=== PATIENT | male | born 1955 | race Caucasian/White ===

== ENCOUNTER 2021-02-05 00:20 | Day surgery (SDC) | payer MEDICARE, SELFPAY ==
[2021-01-21 13:49] VITALS: BMI 31.4
[2021-02-05 07:42] VITALS: BP 131/85; PULSE 55; RESP 18; TEMP 36.1; O2SAT 97; BMI 31.0
[2021-02-05] MEDS: LACTATED RINGERS 1,000 ML 150 ML IV CONT (07:49)
--- NOTE | 2021-02-05 08:39 | WPDANESEPPF ---
Anes - Initial Pre Proc Eval Procedure: Operation Date: 02/05/21 09:00 Proposed Procedures p Screening Colonoscopy - Bud Arteaga MD Date/Time: 02/05/21 08:39 Surgeon: Bud Arteaga MD Pre Op Diagnosis: family hx of colon ca, hx of colon polyps Patient Data Age: 65 Gender: M Height: 1.83 m Weight: 103.9 kg Last Vital Signs Temp 36.1 C L 02/05/21 07:42 Pulse 55 L 02/05/21 07:42 Resp 18 02/05/21 07:42 BP 131/85 02/05/21 07:42 Pulse Ox 97 02/05/21 07:42 Allergies Allergy/AdvReac Type Severity Reaction Status Date / Time No Known Allergies Allergy Unverified 02/05/21 07:41 Home Medications Medication Instructions Recorded Confirmed Type hydrochlorothiazide 25 mg PO DAILY 01/21/21 01/21/21 History latanoprost 1 drp OPHTHALMIC (EYE) DAILY 01/21/21 01/21/21 History timolol maleate 1 drp OPHTHALMIC (EYE) DAILY 01/21/21 01/21/21 History Patient hx anesthesia problems: none Family hx anesthesia problems: none PMFSH Past Medical History Medical History (Updated 02/05/21 @ 08:40 by Christo Deleon MD) History of renal stone HTN (hypertension) Overweight Surgical History Surgical History (Updated 02/05/21 @ 08:40 by Christo Deleon MD) H/O arthroscopic knee surgery Social History Social History Smoking packs per day: 1 Smoking cigarettes per day: 20.0 Years smoked: 20 Smoking pack-years: 20.00 Smoking status: Former smoker Tobacco type: cigarettes Alcohol intake: current Drinks per week: 3 Living arrangements: with family Gender identity (if verbalized by the patient): Male Spiritual care concerns: No Anes - Eval Final PreProcedure Day of Procedure 02/05/21 08:39 Patient weight: overweight Heart: regular rate and rhythm Lungs: clear to auscultation Airway: Mallampati scale class II Neurological: alert and oriented Last oral intake: >/= 8 hours ASA classification: II Emergent: no Anesthetic plan: proceed Anesthesia type and monitoring: general GIVS and standard monitoring Informed Consent: The patient's anesthetic plan and its attendant risks and benefits were discussed with the patient/family/POA. Questions were solicited and answers provided to the satisfaction of the patient/family/POA.
--- NOTE | 2021-02-05 08:47 | PM.HPGS ---
History of Present Illness History of Present Illness Consent: Risks, benefits, and alternatives have been discussed and questions answered. Patient agrees to proceed with procedure. Chief complaint: family hx of colon ca, hx of colon polyps Narrative: Raghav Kirk is a 65 year old male with a family history of colon cancer. He himself has had polyps in the past Review of Systems Review of Systems: All systems reviewed & are unremarkable except as noted in HPI and below PMFSH Past Medical History Medical History History of renal stone HTN (hypertension) Overweight Surgical History Surgical History H/O arthroscopic knee surgery Social History Social History Smoking packs per day: 1 Smoking cigarettes per day: 20.0 Years smoked: 20 Smoking pack-years: 20.00 Smoking status: Former smoker Tobacco type: cigarettes Alcohol intake: current Drinks per week: 3 Living arrangements: with family Gender identity (if verbalized by the patient): Male Spiritual care concerns: No Meds Home Medications and Allergies Home Medications Medication Instructions Recorded Confirmed Type hydrochlorothiazide 25 mg PO DAILY 01/21/21 01/21/21 History latanoprost 1 drp OPHTHALMIC (EYE) DAILY 01/21/21 01/21/21 History timolol maleate 1 drp OPHTHALMIC (EYE) DAILY 01/21/21 01/21/21 History Allergies Allergy/AdvReac Type Severity Reaction Status Date / Time No Known Allergies Allergy Unverified 02/05/21 07:41 Vital Signs Vital Signs - 24 hr 02/05/21 07:42 Temperature 36.1 C L Pulse Rate 55 L Respiratory Rate 18 Blood Pressure 131/85 Pulse Oximetry 97 Exam Resp: Auscultation: clear to auscultation bilaterally Cardio: Rate: regular rate Rhythm: regular rhythm GI: GI Palp: Yes Soft to palpation and No Tenderness to palpation present (GI) Assessment and Plan Assessment and plan (1) Colon cancer screening: Code(s): Z12.11 - Encounter for screening for malignant neoplasm of colon Status: Acute Assessment and Plan: Colonoscopy with possible biopsy or polypectomy or cautery or injection of substances.
[2021-02-05 09:09] VITALS: BP 95/56; PULSE 50; RESP 17; O2SAT 95
[2021-02-05 09:19] VITALS: BP 101/63; PULSE 56; RESP 16; O2SAT 95
[2021-02-05 09:29] VITALS: BP 117/69; PULSE 51; RESP 19; O2SAT 97
== END 2021-02-05 09:45 | disposition home or self-care (01) ==
PROVIDERS: PCP Internal Medicine; Visit Provider Internal Medicine Gastroenterology
PROC: 0DJD8ZZ Inspection of Lower Intestinal Tract, Via Natural or Artificial Opening Endoscopic (ICD-10-PCS; CPT 45378; principal; 2021-02-05 09:00)
DX: Z12.11 Encounter for screening for malignant neoplasm of colon (principal); Z86.010 Personal history of colon polyps; Z80.0 Family history of malignant neoplasm of digestive organs; I10 Essential (primary) hypertension; Z87.891 Personal history of nicotine dependence
CPT/HCPCS: G0105; J2704; J7120

== ENCOUNTER 2022-11-07 15:32 | Emergency (ER) | payer MEDICARE, SELFPAY ==
--- NOTE | 2022-11-07 15:33 | ED.EXTPRO ---
HPI - Extremity Problem General Chief complaint: Extremity Problem,Nontraumatic Stated complaint: Lower Rt Leg Swelling Time Seen by Provider: 11/07/22 15:41 Source: patient, RN notes reviewed and old records reviewed Mode of arrival: ambulatory Limitations: no limitations History of Present Illness HPI Narrative: 67-year-old male presents to the [facility] with complaints of right lower leg swelling, redness, increased warmth since , 3 days Has taken Tylenol and Motrin. Walks with a normal gait. Negative Homans sign. No pain or tenderness posterior calf. Onset (ago): day(s) (3) Related Data Home Medications Medication Instructions Recorded Confirmed hydrochlorothiazide 25 mg tablet 25 mg PO DAILY 01/21/21 11/07/22 latanoprost 0.005 % eye drops 1 drp ophthalmic (eye) DAILY 01/21/21 11/07/22 timolol maleate 0.5 % eye drops 1 drp ophthalmic (eye) DAILY 01/21/21 11/07/22 Allergies Allergy/AdvReac Type Severity Reaction Status Date / Time No Known Allergies Allergy Verified 11/07/22 15:34 Review of Systems Review of Systems: All systems reviewed & are unremarkable except as noted in HPI and below Constitutional: Constitutional: Reports no additional constitutional complaints Eyes: Eyes: Reports no additional eye complaints ENT: Reports system reviewed and no additional complaints, except as documented Cardiovascular: Cardiovascular: Reports no additional cardiovascular complaints, Denies chest pain and Denies dyspnea Respiratory: Respiratory: Reports no additional respiratory complaints, Denies chest congestion, Denies cough and Denies dyspnea Gastrointestinal: Gastrointestinal: Reports no additional gastrointestinal complaints, Denies abdominal pain, Denies nausea and Denies vomiting Musculoskeletal: Musculoskeletal: Reports as per HPI Integumentary/Breasts: Skin/Breast: Reports as per HPI Neurologic: Reports system reviewed and no additional complaints, except as documented Psychiatric: Psychiatric: Reports no additional psychiatric complaints Allergic/Immunologic: Allergic/Immunologic: Reports no additional allergic/immunologic complaints PMFSH Past Medical History Medical History History of renal stone HTN (hypertension) Overweight Surgical History Surgical History H/O arthroscopic knee surgery Social History Social History Smoking packs per day: 1 Smoking cigarettes per day: 20.0 Years smoked: 20 Smoking pack-years: 20.00 Smoking status: Former smoker Tobacco type: cigarettes Alcohol intake: current Drinks per week: 3 Living arrangements: with family Gender identity (if verbalized by the patient): Male Spiritual care concerns: No Comments At the time of my signature, I reviewed and agree with the nursing past medical, surgical, social, and family history. There is no relevant family history pertinent to the patient complaint. Exam Const: General: cooperative, healthy appearing, comfortable, no acute distress, well developed, alert and well nourished Nutritional Appearance: well nourished and obese Orientation/consciousness: patient oriented x3 Limitations: no limitations HENMT: Head: normal to inspection Ears: hearing grossly normal bilaterally and external ears normal Face/Nose/Sinus: Normal external nose present, Normal nares present, Normal nasal mucous membranes and turbinates present and normal facial exam Face and sinus: normal facial exam Mouth: Yes Normal oral and palatal mucosa present, Yes lip normal and Yes moist mucous membranes Eyes: General: appearance normal, both eyes and all related structures Alignment and Position: alignment normal Periorbital: periorbital findings normal Conjunctivae: conjunctivae normal Pupils: Equal, round and reactive pupils present EOM: EOMs intact
[2022-11-07 15:40] VITALS: BP 129/76; PULSE 64; RESP 16; TEMP 37.2; O2SAT 100
== END 2022-11-07 16:00 | disposition home or self-care (01) ==
PROVIDERS: Emergency Provider Nurse Practitioner; PCP Internal Medicine
DX: L03.115 Cellulitis of right lower limb (principal); I10 Essential (primary) hypertension; Z87.891 Personal history of nicotine dependence
CPT/HCPCS: 99213; G0463

== ENCOUNTER 2025-03-08 12:44 | Outpatient (CLI) | payer MEDICARE, SELFPAY ==
--- OUTSIDE RECORDS SUMMARY | 2025-03-08 13:08 | XMS_ITS | Encounter Summary ---
Author Organization [facility] Address [address] [place] [address] Care Team Providers Care Chief Media Officer Name Role Phone Liu Olivas MD Primary Care Provider [phone] Reason for Visit * Reason Onset Date Comments PT Follow Up 01/27/2024 Wanted to know i f he can get his PT extended Encounter Details Date Type Department Care Team (Late st Contact Info) Description 01/27/2024 Telephone [facility] Orthopedic Surgery at the [facility] [address] [place] [address] Kai Moya MD [address] [facility] [address] [place] [address] PT Follow Up (Wanted to know if he can get his PT extended ) Social History Tobacco Use Types Packs/Day Years Used Date Smoking Tobacco: Former Cigarettes 1 24.6 2 001 - 1973 Smokeless Tobacco: Former Chew Quit: 2000 Alcohol Use Standard Drinks/Week Comments Yes 7 (1 standard drink = 0.6 oz pur e alcohol) Sex and Gender Information Value Date Recorded Sex Assigned at Not on file 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
--- OUTSIDE RECORDS SUMMARY | 2025-03-08 13:08 | XMS_ITS | Clinical Summary ---
Author Organization [facility] Address [address] [place] [address] Care Team Providers Care Bun Panner Name Role Phone Liu Olivas MD Primary Care Provider [phone] Allergies No known active allergies Medications timolol (TIMOPTIC) 0.5 % ophthalmic solutionIndicat ions:open angle glaucoma Administer 1 drop into both eyes every morning 8 Active latanoprost (XALATAN) 0.005 % ophthalmic solutionIndicat ions:open angle glaucoma Administer 1 drop into both eyes nightly 8 Active psyllium seed, with sugar, (FIBER ORAL)Indication s:constipation Take 1 tablet/chew tab by mouth every morning Active aluminum hydroxide - magnesium carbonate (GAVISCON) suspension 95 MG-358 mg/15 mL Take 15 mL by mouth nightly Active ketoconazole (NIZORAL) 2 % shampooIndicati ons:tinea versicolor Apply topically 3 (three) times a week Apply to damp skin, lather, leave on 5 minutes, and rinse Active olmesartan (BENICAR) 20 mg tablet Take 1 tablet (20 mg total) by mouth daily 30 tablet 11 4 07/06/20 25 Active methylPREDNISol one (MEDROL DOSEPACK) 4 mg Dosepack Take 1 tablet (4 mg total) by mouth daily Use as directed by package instructions 21 tablet 5 Active hydroCHLOROthia zide (HYDRODIURIL) 25 mg tablet Take 1 Tablet (25 mg) by mouth daily in the morning. 90 tablet 2 Active Active Problems Problem Noted Date Diagnosed Date Impacted cerumen, bilateral 01/18/2025 Thrombocytopenia 11/08/2022 Assessment & Plan (11/08/2022 3:53 AM CDT): -mild, platelet count 127K/cumm -repeat CBC in AM; hold heparinoids if platelets <50K -no indication for transfusion SDPs at this time -outpatient f/u with PMD for serial CBCs; can consider further w/u or hematology referral at that time Cellulitis of right leg 11/07/2022 Assessment & Plan (11/08/2022 3:47 AM CDT): -mild, uncomplicated; no S/Sx abscess or sepsis -afebrile, HD stable, normal WBC count -he receive 1g IV cefazolin in the ED, a few hours after he took the first dose of cefuroxime 500 mg PO as an outpatient -will hold further ABx administration for now -repeat BMP, Mg, Phos, CBC in AM -check blood Cx if spikes fever -elevate leg overnight and re-evaluate in AM; if he is afebrile, hemodynamically stable and without worrisome findings on exam in AM, he can likely be discharged on the antibiotic regimen he was rx'd at the urgent care Cellulitis 11/07/2022 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 ENT [address] [place] [address] [place] [address] Edita Hodges PA Impacted cerumen, bilateral (Primary Dx) from Last 3 Months Immunizations Immunization Administration Dates Next Due COVID-19 mRNA (Kera) 0.3 m L (30 mcg) vaccine (12 years and up) 04/29/2023 Influenza, Quad, Adjuvantate d, Intramuscular 04/29/2023,05/08/2022,06/05/2021 Influenza, Quadrivalent, Spl it, Preservative Free, Intramuscular 05/07/2020 Influenza, Trivalent, Adjuva nted, Intramuscular 05/07/2024 Influenza, Trivalent, High D ose, Split, Preservative Free, Intramuscular 03/30/2019,04/30/2015,04/25/2014 Influenza, Trivalent, Preser vative Free, Intramuscular 05/02/2013 Pneumococcal Conjugate PCV 13 10/16/2019 Pneumococcal Polysaccharide PPV23 05/07/2020 RSV Vaccine, Pref, Recombina nt, Subunit, Adjuvanted, PF, IM (Arexvy) 05/20/2023 Td, adsorbed 05/02/2013 ZOSTER Recombinant 03/30/2019,01/18/2019 Surgical History Surgery Date Site/Laterality Comments KIDNEY STONE SURGERY 08/01/2006 - 07/31/2007 FLUORO GUIDED INJECTION SHOULDER RIGHT 04/08/2020 Right BASAL CELL CARCINOMA EXCISION 08/01/2019 - 07/31/2020 Left Eyebrow CATARACT EXTRACTION W/ INTRAOCULAR LENS IMPLANT 08/01/2018 - 07/31/2019 Bilateral COLONOSCOPY Multiple-- Last ~12/2020 KNEE ARTHROSCOPY 08/01/2010 - 07/31/2011 Right Meniscectomy - Kaye OTHER SURGICAL HISTORY 07/01/2021 - 07/31/2021 Laser KTP, microlaryngoscopy OTHER SURGICAL HISTORY 09/25/2021 Laser KTP, microlaryngoscopy LARYNGOSCOPY 03/29/2022 flex laryngoscopy with KTP laser LARYNGOSCOPY 11/30/2021 Suspension Microlaryngoscopy Medical History Medical History Date Comments Gastric reflux Arthritis Pneumonia Obesity History of kidney stones Multipl e-- Last ~2014 passed without surgical interveion; s/p surgical removal 2006 Former smoker Quit 2000 Hypertension Dxd 2019 History of basal cell carcinoma (BCC) BCC Left eyebrow s/p excision 2019 GERD (gastroesophageal reflux disease) Chronic kidney disease 2000? PONV (postoperative nausea and vomiting) Family History Medical History Relation Name Comments Cancer Father Tim Hypertension Father Tim Arthritis Mother Carlene Diabetes Mother Carlene Heart disease Mother Carlene Hypertension Mother Carlene Anesthesia problems Neg Hx Relation Name Status Comments Father Tim Mother Carlene Social History Tobacco Use Types Packs/Day Years Used Date Smoking Tobacco: Former Cigarettes 1 25.7 0 11/13/1974 - 2000 Passive Smoke Exposure: Past Smokeless Tobacco: Former Chew Quit: 11/13/1989 Tobacco Cessation:Counseling Given: Not Answered Alcohol Use Standard Drinks/Week Comments Yes 0 (1 standard drink = 0.6 oz pur e alcohol) SOCIAL AUDIT-C Answer Date Recorded Q1: How often do you have a drink containing alc ohol? 2-3 times a week 06/06/2023 Q2: How many drinks containi ng alcohol do you have on a typical day when you are drinking? 1 or 2 06/06/2023 Q3: How often do you have si x or more drinks on one occasion? Never 06/06/2023 Personal Safety Answer Date Recorded Have you ever been in or are you currently in a harmful physical or emotional relationship or is someone making you feel afraid or unsafe? 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 Gender Identity Not on file Sexual Orientation Not on file Obstetrics History Last Filed Vital Signs Vital Sign Reading Time Taken Comments Blood Pressure 130/80 11/07/2024 11:17 AM CDT Pulse 69 11/07/2024 11:17 AM CDT Temperature 36.1 C (97 F) 06/06/2023 12:20 PM CONFERENCE SERVICE COORDINATOR Respiratory Rate 22 06/06/2023 12:20 PM CONFERENCE SERVICE COORDINATOR Oxygen Saturation 96% 06/06/2023 12:20 PM CONFERENCE SERVICE COORDINATOR Inhaled Oxygen Concentration - - Weight 108 kg (238 lb) 01/18/2025 11:16 AM CDT Height 182.9 cm (6') 11/29/2024 12:12 PM CDT Body Mass Index 32.28 11/29/2024 12:12 PM CDT Plan of Treatment Scheduled Procedures Name Priority Associated Diagnoses Date/Ti me COLONOSCOPY Encounter for screening colonoscopy Health Maintenance Due Date Last Done Comments Depression Screening 1955 Hepatitis C Screening 1955 Hepatitis B Screening 1971 DTaP/Tdap/Td Vaccine (1 - Tdap) 05/03/2013 3 Well Visit 65+ 11/18/2022 11/18/2021 Fall Risk Assessment 06/06/2024 06/06/2023 Covid-19 Vaccine (8 - 2023-2 5 season) 2024 05/07/2024, 04/29/2023, 06/26/2022, Additional history exists Influenza Vaccine (#1) 2025 , 04/29/2023, 05/08/2022, Additional history exists Colon Cancer Screening-Colonoscopy 02/18/2026 Abdominal Aortic Aneurysm (A AA) Screen Completed 10/10/2018, 02/19/2016 Zoster Vaccine Completed 03/30/2019, 01/18/2019 Pneumococcal vaccine 65+ Completed 05/07/2020, 09/29 Prostate Cancer Screening-PSA Discontinued , 11/18/2022, 11/18/2021, Additional history exists Medical Devices Implanted Type Area Operating Room Coordinator Device Identifier Shelf Expiration Date Model / Serial / Lot Dental Implant Upper Right Mouth Procedures Procedure Name Priority Date/Time Associated Diagnosis Comments PSA SCREEN Routine 11/07/2024 12:31 PM CDT Screening for prostate cancer from Last 3 Months or Most Recently Relevant to Health Maintenance Results * PSA screen (11/07/2024 12:31 PM CDT) PSA-Total 2.34 <=6.20 ng/mL Comment: Interpretive Data AGE SEX REFERENCE INTERVAL 0 minutes-150 years Female None 0 minutes-49 years Male None 50-59 years Male 0-3.90 60-69 years Male 0-5.40 70-79 years Male 0-6.20 80-150 years Male 0-6.20 The Chance PSA Total assay procedure was used. Results from different manufacturers or methods may not be comparable. Serial testing should be performed using the same method. Current interpretive data last revised 21. Blood 11/07/2024 12:3 1 PM CDT 11/07/2024 1:41 PM CDT us Liu Olivas MD LAB BLOOD ORDERABLES Final Re sult [facility] Department [place] [address] from Last 3 Months or Most Recently Relevant to Health Maintenance Insurance [facility] MEDICARE AppMyDay OPEN ACCESS [facility] MEDICARE ADVANTAGE [facility] MEDIC[facility] Address: [address] [place] [address] [employer] MEDICARE Advance Directives For more information, please contact: [phone] Documents on File Type Date Recorded Patient Plate Mounter Expl anation ADVANCE DIRECTIVE 07/03/2021 2:00 PM Power of Harness Cutter-Medical * Full Code (Latest Code Status on File) Date Activated Date Inactivated Comments 11/08/2022 3:23 AM 11/08/2022 5:22 PM Care Teams Bun Panner Relationship Specialty Start Date End Date Liu Olivas MD PCP - General Internal Medicine 03/27/18
--- OUTSIDE RECORDS SUMMARY | 2025-03-08 13:08 | XMS_ITS | Clinical Summary ---
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 This disclosure is being madepursuant to the Care Everywhere program and may not contain all information available regarding this patient. Last updated 18.[facility] Allergies No known active allergies Medications * Be aware that medications may not be up to date on this document. Alwaysverify current medications with the patient. Hardwick-3 Fatty Acids (FISH OIL CONCENTRATE PO) Take by mouth. Active latanoprost (XALATAN) 0.005 % ophthalmic solution 01/05/2017 Active timolol maleate (TIMOPTIC) 0.5 % ophthalmic solution 01/05/2017 Active hydroCHLOROthiaz tj (HYDRODIURIL) 25 MG tabletIndication s:Nephrolithiasi s,Hypertension, unspecified type TAKE 1 TABLET BY MOUTH ONCE DAILY 90 tablet 4 10/07/2021 Active Family History Medical History Relation Name Comments Cancer Father Hypertension Mother Relation Name Status Comments Father Mother Social History Tobacco Use Types Packs/Day Years Used Date Smoking Tobacco: Former Smokeless Tobacco: Never Comments:quit 1991 Alcohol Use Standard Drinks/Week Comments Yes 0 (1 standard drink = 0.6 oz pur e alcohol) ocasionally Sex and Gender Information Value Date Recorded Sex Assigned at Not on file 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 Gender Identity Not on file Sexual Orientation Not on file Last Filed Vital Signs Vital Sign Reading Time Taken Comments Blood Pressure 126/79 10/10/2018 11:38 AM CDT Pulse 54 10/10/2018 11:38 AM CDT Temperature 37 C (98.6 F) 10/10/2018 11:38 AM CDT Respiratory Rate 16 02/18/2016 7:05 AM CDT Oxygen Saturation 100% 10/10/2018 11:38 AM CDT Inhaled Oxygen Concentration - - Weight 104.3 kg (230 lb) 10/10/2018 11:38 AM CDT Height 182.9 cm (6') 10/10/2018 11:38 AM CDT Body Mass Index 31.19 10/10/2018 11:38 AM CDT Plan of Treatment Health Maintenance Due Date Last Done Comments COLOGUARD (AGES 45-75) - COL ON CA SCREENING 1953 CT COLONOGRAPHY - COLON CA SCREENING 1955 FIT - COLON CA SCREENING 1955 FLEX SIG - COLON CA SCREENING 1953 LIPID TESTING 1953 HEPATITIS C SCREENING 08/02/1971 DTAP/TDAP/TD VACCINES (1 - Tdap) 1972 PNEUMOCOCCAL VACCINE 50+ (1 of 1 - PCV) 2003 ZOSTER VACCINE (1 of 2) 2003 AAA SCREENING 2018 SCREENING FOR DIABETES 02/17/2019 02/18/2016 COLON MONITORING 10/25/2021 10/26/2011 COLONOSCOPY - COLON CA SCREENING 10/25/2021 10/26/19 Colorectal Cancer Screening 10/25/2021 COVID-19 VACCINE (1 - 2023-2 5 season) 2024 DEPRESSION SCREENING 08/01/2024 INFLUENZA VACCINE (#1) 2025 Respiratory Syncytial Virus (RSV) Vaccine Pt: or over 60 yrs (1 - 1-dose 75+ series) 2028 HEPATITIS B VACCINE Aged Out No longe r eligible based on patient's age to complete this topic HIB VACCINE Aged Out No longer eligi ble based on patient's age to complete this topic HPV VACCINE Aged Out No longer eligi ble based on patient's age to complete this topic MENINGOCOCCAL (Group B) VACC INE SHARED DECISION-MAKING Aged Out No longer eligibl e based on patient's age to complete this topic MENINGOCOCCAL GROUPS A/C/Y/W VACCINE Aged Out No longer eligible b ased on patient's age to complete this topic Procedures Procedure Name Priority Date/Time Associated Diagnosis Comments COMPREHENSIVE METABOLIC PANEL STAT 02/18/2016 7:32 AM CDT ENDOSCOPY, COLON, SCREENING Routine 10/26/2011 10:20 AM CDT from Last 3 Months or Most Recently Relevant to Health Maintenance Results * (ABNORMAL) COMPREHENSIVE METABOLIC PANEL (02/18/2016 7:32 AM CDT) BUN 19 7 - 26 mg/dL [facility] Creatinine 1.3(H) 0.6 - 1.2 mg/dL [facility] Sodium 139 136 - 145 mmol/L [facility] Potassium 4.1 3.5 - 4.5 mmol/L [facility] Chloride 105 98 - 107 mmol/L [facility] CO2 22 22 - 29 mmol/L [facility] Glucose 109 70 - 115 mg/dL [facility] Calcium 9.1 8.4 - 10.2 mg/dL [facility] Protein Total 6.8 6.0 - 8.3 g/dL [facility] Albumin 4.0 3.4 - 5.0 g/dL [facility] Bilirubin Total 1.8(H) 0.2 - 1.2 mg/dL [facility] Alkaline Phosphatase 56 40 - 150 Units/L [facility] ALT 12 0 - 55 Units/L [facility] AST 16 5 - 34 Units/L [facility] Anion Gap 16 8 - 18 [facility] BUN/Creatinine Ratio 15 7 - 23 [facility] Osmolality Calculated 291 270 - 300 mOsm/kg [facility] Albumin/Globulin Ratio 1.4 1.1 - 2.3 [facility] eGFR 56(L) >60 mL/min/1.7 3 m2 [facility] Blood specimen (specimen) BLOOD SPECIMEN / Unknown 02/18/2016 7:32 AM CDT 02/18/2016 7:35 AM CDT John Silvestre MD LAB - CHEMISTRY ORDERABLES F inal Result Performing Organization Address City/[facility]/ZIP Co de Phone Number [address] [phone] * ENDOSCOPY, COLON, SCREENING (10/26/2011 10:20 AM CDT) Narrative Transcriptions Neal Vences MD - 10/26/2011 10:19 AM CDT Neal Vences MD GI PROCEDURE ORDERABLES F inal Result Performing Organization Address [facility] Co de Phone Number [facility] ENDOSCOPY from Last 3 Months or Most Recently Relevant to Health Maintenance Insurance MEDICARE MEDICARE 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
--- OUTSIDE RECORDS SUMMARY | 2025-03-08 13:08 | XMS_ITS | Clinical Summary ---
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 Active FIBER ORAL Take by mouth. Acti ve OTHER Litholyte Water Enhancer Supplement Powder Active timoloL maleate (TIMOPTIC) 0.5% solution INSTILL ONE DROP INTO BOTH EYES EVERY MORNING 5 mL 4 07/09/2024 9:25 AM SPRAY CREW 4 Active latanoprost (XALATAN) 0.005 % solution INSTILL 1 DROP INTO BOTH EYE(S) AT BEDTIME 9 mL 4 12/03/2024 11:55 AM CDT 4 Active ketoconazole (NIZORAL) 2 % Shampoo Use small amount as body wash every other day. 120 mL 5 01/17/2024 11:49 AM CDT 4 Active Food Supplement, Lactose-Free (Ensure Compact) Liquid Take by mouth. Activ e aspirin (ECOTRIN EC) 325 mg Tablet, Delayed Release (E.C.) Take 1 Tablet (325 mg) by mouth daily with breakfast. 30 Tablet 02/24/2024 10:10 AM CDT 4 Active ondansetron (ZOFRAN ODT) 4 mg Tablet, Rapid Dissolve Dissolve 1 Tablet (4 mg) on top of tongue, then swallow with saliva every 6 hours as needed for Nausea/Vomiting . 10 Tablet 02/24/2024 10:10 AM CDT 4 Active penicillin V potassium (VEETID) 500 mg tablet Take 1 Tablet (500 mg) by mouth every 6 hours until gone 28 Tablet 04/12/2024 9:31 AM CDT 4 Active amoxicillin (AMOXIL) 500 mg capsuleIndicatio ns:Status post total knee replacement using cement, right Take 4 capsules by mouth one hour prior to dental appointment. 4 Capsule 6 04/12/2024 11:58 AM CDT 4 Active amoxicillin (AMOXIL) 500 mg capsule Take 4 Capsules (2,000 mg) by mouth 1 hour prior to appointment. 20 Capsule 05/21/2024 3:46 PM CDT 4 Active olmesartan (BENICAR) 20 mg tablet Take 1 tablet (20 mg total) by mouth daily 30 Tablet 11 01/09/2025 11:13 AM CDT 4 Active ketoconazole (NIZORAL) 2 % Shampoo Use small amount as body wash 2-3 times weekly. 120 mL 5 07/18/2024 2:38 PM SPRAY CREW 4 Active timoloL maleate (TIMOPTIC) 0.5% solution INSTILL ONE DROP INTO BOTH EYES EVERY MORNING 5 mL 6 12/03/2024 11:55 AM CDT 5 Active methylPREDNISolo ne (MEDROL DOSPACK) 4 mg Tablets, Dose Pack TAKE DIRECTED ON PACKAGE. 21 Tablet 11/29/2024 2:28 PM CDT 5 Active hydroCHLOROthiaz tj 25 mg tablet Take 1 Tablet (25 mg) by mouth daily in the morning. 90 Tablet 2 01/09/2025 11:13 AM CDT 5 Active ketoconazole (NIZORAL) 2 % Shampoo Apply to affected areas on trunk 2-3 times weekly in the shower as needed. 120 mL 5 01/29/2025 4:07 PM CDT 5 Active Active Problems Problem Noted Date Diagnosed Date Primary osteoarthritis of right knee 02/24/2024 S/P total knee arthroplasty, right 02/24/2024 HTN (hypertension), benign 02/24/2024 Acute blood loss as cause of postoperative anemi a 11/04/2023 Primary osteoarthritis of left knee 11/04/2023 Hypertension 11/03/2023 Overview (11/03/2023): Dxd 2019 Last Assessment & Plan: -resume home regimen HCTZ in AM S/P total knee arthroplasty, left 11/03/2023 Encounters Date Type Department Care Team Description 01/24/2025 11:05 AM CDT Ancillary Procedure [facility] [address] [place] [address] Kai Moya MD Status post total knee replacement using cement, right; Status post total knee replacement using cement, left 01/24/2025 11:00 AM CDT Office Visit [facility] [address] [place] [address] Kai Moya MD Status post total knee replacement using cement, right (Primary Dx); Status post total knee replacement using cement, left 12/24/2024 External Device Data Initial Department [address] [place] [address] Dr VELEZ: [place] [address] Juan Olmos Md 12/20/2024 External Device Data [facility] ABSTRACTION Provider, Abstract 12/19/2024 External Device Data [facility] ABSTRACTION Provider, Abstract 12/18/2024 External Device Data [facility] ABSTRACTION Provider, Abstract from Last 3 Months Social History Tobacco Use Types Packs/Day Years Used Date Smoking Tobacco: Former Cigarettes 1 24.6 2 001 - 1974 Smokeless Tobacco: Former Chew Quit: 2000 Tobacco Cessation:Counseling Given: Not Answered Alcohol Use Standard Drinks/Week Comments Yes 7 (1 standard drink = 0.6 oz pur e alcohol) Sex and Gender Information Value Date Recorded Sex Assigned at Not on file 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 Gender Identity Not on file Sexual Orientation Not on file Last Filed Vital Signs Vital Sign Reading Time Taken Comments Blood Pressure 127/71 02/24/2024 4:02 AM CDT Pulse 76 02/24/2024 4:02 AM CDT Temperature 36.6 C (97.9 F) 02/24/2024 4:02 AM CDT Respiratory Rate 16 02/24/2024 4:02 AM CDT Oxygen Saturation 95% 02/24/2024 4:02 AM CDT Inhaled Oxygen Concentration - - Weight 108 kg (238 lb) 01/24/2025 10:59 AM CDT Height 182.9 cm (6') 01/24/2025 10:59 AM CDT Body Mass Index 32.28 01/24/2025 10:59 AM CDT Plan of Treatment Health Maintenance Due Date Last Done Comments DTAP/TDAP/TD VACCINES (1 - Tdap) 1972 FIT-DNA Q 3 years 1998 FIT/FOBT Q 1 year 1998 Flex Sig/CT Colonography Q 5 years 1998 COLORECTAL SCREENING 10/25/2021 10/26/2011 Colorectal Cancer Screening 10/25/2021 COVID-19 Vaccine (2023-2 5 season) 2024 04/29/2023 INFLUENZA VACCINE (#1) 2025 , 04/29/2023, 05/08/2022, Additional history exists RSV VACCINE (60+ or ) (1 - 1-dose 75+ series) 2028 Abdominal Aortic Aneurysm (A AA) Screening Completed 10/10/2018, 02/19/2016 ZOSTER VACCINE Completed 03/30/2019, 01/18/2019 PNEUMOCOCCAL VACCINE 50+ YEARS Completed 05/07/2020 , 10/16/2019 Medical Devices Implanted Type Area Corrugated Sheet Material Sheeter Device Identifier Shelf Expiration Date Model / Serial / Lot Cement R Refobacin 1x40gm [id number] - [id number] Implanted:Qty: 2 on 11/03/2023 by Kai Moya MD at [facility] Cement Left: Knee [employer] [id number] 02/28/2026 [id number] / / [id number] Cement R Refobacin 1x40gm [id number] - [id number] Implanted:Qty: 1 on 02/23/2024 by Kai Moya MD at [facility] Cement Right: Knee [employer] [id number] 03/31/2026 [id number] / / [id number] Cement R Refobacin 1x40gm [id number] - [id number] Implanted:Qty: 1 on 02/23/2024 by Kai Moya MD at [facility] Cement Right: Knee [employer] [id number] 11/28/2025 [id number] / / [id number] Comp Tib Cocr Finned 83mm [id number] - [id number] Implanted:Qty: 1 on 11/03/2023 by Kai Moya MD at [facility] Knee Left: Knee [employer] 08/12/2033 [id number] / / [id number] Comp Fem Vanguard Cr Interlock Lt 70mm [id number] - [id number] Implanted:Qty: 1 on 11/03/2023 by Kai Moya MD at [facility] Knee Left: Knee [employer] 05/31/2033 [id number] / / [id number] Bearing Tib Vanguard Ant Stblzd [id number] - [id number] Implanted:Qty: 1 on 11/03/2023 by Kai Moya MD at [facility] Knee Left: Knee [employer] [id number] 12/09/2026 [id number] / / [id number] Comp Fem Vanguard Cr Interlock Rt 70mm [id number] - [id number] Implanted:Qty: 1 on 02/23/2024 by Kai Moya MD at [facility] Knee Right: Knee [employer] 10/11/2033 [id number] / / [id number] Comp Tib Cocr Finned 87mm [id number] - [id number] Implanted:Qty: 1 on 02/23/2024 by Kai Moya MD at [facility] Knee Right: Knee [employer] 12/11/2027 [id number] / / [id number] Vanguard Vivacit-E Highly Crosslinked Polyethylene Implanted:Qty: 1 on 02/23/2024 by Kai Moya MD at [facility] Patella Right: [employer] 05/09/2027 [id number] / / [id number] Procedures Procedure Name Priority Date/Time Associated Diagnosis Comments XR KNEE 3 VW BILAT Routine 01/24/2025 11 :07 AM CDT Status post total knee replacement using cement, right Status post total knee replacement using cement, left from Last 3 Months Results * XR KNEE 3 VW BILAT (01/24/2025 11:07 AM CDT) Anatomical Region Laterality Modality Lower Extremity Computed Radiogr aphy Narrative 01/29/2025 6:39 AM CDT Standing AP, lateral, sunrise view of both knees reveal a total knee arthroplasty to be in good position alignment without evidence of loosening Kai Moya MD DIAGNOSTIC IMAGING ORDERABLES Final Result from Last 3 Months Insurance RX [employer] Medicare Part D RX [employer] (INTERNAL) [facility] [employer] O [facility] Advance Directives For more information, please contact: [phone] Documents on File Type Date Recorded 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 Advance Directive Living Will 11/17/2023 10:22 AM Advance Directive POA 11/03/2023 1:58 PM * Full Code (Latest Code Status on File) Date Activated Date Inactivated Comments 02/23/2024 6:49 PM 02/24/2024 12:03 PM * Full Code Date Activated Date Inactivated Comments 02/23/2024 12:25 PM 02/23/2024 6:49 PM * Full Code Date Activated Date Inactivated Comments 02/23/2024 10:37 AM 02/23/2024 12:25 PM * Full Code Date Activated Date Inactivated Comments 11/03/2023 5:45 PM 11/04/2023 5:02 PM * Full Code Date Activated Date Inactivated Comments 11/03/2023 12:42 PM 11/03/2023 5:45 PM Care Teams Take Out Waiter Relationship Specialty Start Date End Date Liu Olivas MD [id number] [place] [address] PCP - General Internal Medicine 11/03/23
== END 2025-03-08 12:45 | disposition home or self-care (01) ==
LOC: ANHAUDASC 13:05
PROVIDERS: PCP Internal Medicine; Visit Provider Otolaryngology Otolaryngology/Facial Plastic Surgery
DX: H90.3 Sensorineural hearing loss, bilateral (principal); R42 Dizziness and giddiness; H61.20 Impacted cerumen, unspecified ear; Z82.2 Family history of deafness and hearing loss
CPT/HCPCS: 92557; 92567

== ENCOUNTER 2025-04-19 09:00 | Outpatient (RCR) | payer MEDICARE, SELFPAY | END 2025-06-13 23:59 | disposition home or self-care (01) | LOC: ANHAUDASC 09:00 | PROVIDERS: PCP Internal Medicine; Visit Provider Otolaryngology Otolaryngology/Facial Plastic Surgery | DX: Z46.1 Encounter for fitting and adjustment of hearing aid (principal) | CPT/HCPCS: 99199; V5261 ==